=== PATIENT | female | born 1980 | race Caucasian/White ===

== ENCOUNTER 2020-06-23 21:34 | Inpatient (IN) | payer OTHER ==
[2020-06-23] MEDS ORDERED: SODIUM CHLORIDE 0.9% 500 ML INFUS.BAG IV ONE ×2 (21:44→22:57)
[2020-06-23] MEDS ORDERED: ACETAMINOPHEN 1000 MG/100 ML VIAL (NON FORMULARY) IVPB ONE (21:55)
--- NOTE | 2020-06-23 21:56 | PDOC ---
History of Present Illness - General Chief Complaint: Blood Sugar Problem Stated Complaint: BLOOD SUGAR ELEVATED Time Seen by Provider: 06/23/20 21:43 History Source: Patient Exam Limitations: No Limitations - History of Present Illness Initial Comments: 06/23/20 21:51 39YOF with h/o recent uncomplicated vaginal delivery of her first child, was c/b gestational DM (was on 10 units SQI for the last 3 weeks of her which was otherwise uncomplicated) who p/w tiredness, blurry vision, lightheadedness, and headache for the past 2-3 days. She came in because she checked her BG at home this evening and found it to be 595. She first drank a lot of water but the BG was still at 500, so she came to the ED. She has tried taking Motrin for the headache with some relief, but it is still present. She notes some mild nausea. She denies vertigo, numbness, tingling, focal weakness, speech problems, swallowing issues, walking difficulties, f/c, d/c, CP, AP, SOB, or other symptoms. Past History - Medical History Allergies/Adverse Reactions: Allergies Allergy/AdvReac Type Severity Reaction Status Date / Time Penicillins Allergy Verified 06/23/20 21:47 shellfish derived Allergy Verified 06/23/20 21:47 Home Medications: Ambulatory Orders Fexofenadine HCl [Loraine Allergy] 60 mg PO DAILY 06/23/20 Pnv No.95/Ferrous Fum/Folic AC [ Caplet] 1 each PO DAILY 06/23/20 Anemia: (ENVIRONMENTAL ALLERGIES) COPD: No Diabetes: (GESTATIONAL) Other medical history: POST CILDBIRTH X2 WEEKS - Surgical History Appendectomy: Yes - Reproductive History Is Patient Now?: No - Immunization History Immunization Up to Date: Yes - Psycho-Social/Smoking History Smoking History: Never smoked Review of Systems - Review of Systems Able to Perform ROS?: Yes Comments:: 06/23/20 21:55 GEN: malaise, generalized weakness, no fever or chills HEENT: no ear pain, congestion, sore throat, vision change, or eye pain CV: lightheadedness, no chest pain, palpitations, syncope, or edema RESP: no SOB, wheezing, or cough GI: nausea, no abdominal pain, vomiting, diarrhea, constipation, or rectal bleed : no dysuria, hematuria, or discharge MSK: no muscle weakness or pain, no joint swelling or pain NEURO: headache, no vertigo, numbness, tingling, or focal weakness PSYCH: no SI, HI, or behavior change SKIN: no jaundice, rash, lesions, or unexplained bruises ROS otherwise negative except as noted in HPI *Physical Exam - Vital Signs Last Vital Signs Temp Pulse Resp BP Pulse Ox 97.9 F 73 18 119/88 100 06/23/20 21:35 06/23/20 21:35 06/23/20 21:35 06/23/20 21:35 06/23/20 21:35 - Physical Exam 06/23/20 21:56 GENERAL: generally well-appearing, A/Ox4, no distress, answers questions appropriately, very pleasant HEENT: PERRLA, EOMI, a bit dry mucous membranes NECK/BACK: no midline ttp, no spinal step-off or deformity, no hematoma, full ROM, neck supple CARDIOVASCULAR: regular rate/rhythm, no MGR, strong peripheral pulses, capillary refill <2 seconds, extremities wwp, no edema LUNGS/RESPIRATORY: no respiratory distress, CTAB GI/ABDOMEN: symmetric [id number], normoactive BS, soft, no ttp, no midline pulsatile masses : no CVA tenderness MSK/EXTREMITIES: no muscle atrophy, no acute deformity SKIN: warm and dry, a bit pale, no jaundice, no rash, no pathologic-appearing bruising, no skin breakdown, no cuts, no lesions NEUROLOGICAL: GCS 15, CN II-XII grossly intact, 5/5 strength proximally and distally, no facial droop Heart Score/ECG Review #1 06/23/20 23:28 Sinus rhythm, rate 70, normal axis and intervals, no ischemic ST-T changes. There is NO grossly prolonged QTc. ED Treatment Course - LABORATORY CBC & Chemistry Diagram: 06/23/20 22:09 06/23/20 22:12 - ADDITIONAL ORDERS Additional order review: Laboratory Results 06/23/20 21:46 POC Glucometer 460 06/23/20 21:46 POC Glucometer 460 Medical Decision Making - Medical Decision Making 06/23/20 22:07 39YOF who recently had vaginal delivery of her first baby with complicated by GDM, who p/w tiredness, blurry vision, lightheadedness, and BG up to 595 at home. Initial Vital Signs Temp Pulse Resp BP Pulse Ox 97.9 F 73 18 119/88 100 06/23/20 21:35 06/23/20 21:35 06/23/20 21:35 06/23/20 21:35 06/23/20 21:35 Most likely HHS or DKA. Possible simple hyperglycemia leading to polyuria and dehydration. The patient does have new onset blurry vision and posterior headache, which of course does raise the question of CVT or SAH. However there was no sudden onset to the headache, she has subjective blurred vision but on my exam she has 20/20 vision in each eye and both together with her lenses on, she has no ataxia, no focal neuro deficits, normal cerebellar signs, no encephalopathy, states she has had similar headaches before. Therefore will not pursue brain imaging at this time. Provider Orders Category Date Time Status VENOUS BLOOD GAS Stat ABG 06/23/20 22:12 Completed ELECTROCARDIOGRAM [CARD] Stat Cardiology 06/23/20 21:44 Ordered EKG needed NOW Care 06/23/20 21:44 Completed Finger Stick [BGM (Blood Glucose Monitoring)] NOW Care 06/23/20 21:50 Active BETA-HYDROXYBUTYRATE Stat Lab 06/23/20 22:12 Results CBC WITH DIFFERENTIAL Stat Lab 06/23/20 22:09 Completed COMP METABOLIC PANEL Stat Lab 06/23/20 22:12 Results MAGNESIUM Stat Lab 06/23/20 22:12 Results PHOSPHOROUS Stat Lab 06/23/20 22:12 Results POC GLUCOSE TESTING Routine Lab 06/23/20 21:46 Completed UA ([facility] ONLY) Stat Lab 06/23/20 22:07 Completed URINE MICROSCOPIC (TEMI) Stat Lab 06/23/20 22:07 Completed Acetaminophen Injection [Ofirmev Injection -] Medication 06/23/20 21:55 Discontinued 1,000 mg IVPB ONCE ONE Acetaminophen Injection [Ofirmev Injection -] 100 ml Medication 06/23/20 22:04 Discontinued IVPB UD Insulin Regular [NOVOLIN R VIAL *For IVPUSH or IV DRIP Medication 06/23/20 22:57 Stop Req Only*] 10 units SQ ONCE ONE Insulin Regular [NOVOLIN R VIAL *For IVPUSH or IV DRIP Medication 06/23/20 23:20 Once Only*] 19 units SQ ONCE ONE KCl 10 Meq Ivpb [Potassium Chloride 10 Meq Premix Ivpb Medication 06/23/20 22:59 Discontinued -] 10 meq in 100 ml IVPB UD KCl 10meq IVPB @ 100 mLs/hr X 1 BAG Medication 06/23/20 23:00 Ordered KCl 10 Meq Ivpb [Potassium Chloride 10 Meq Premix Ivpb -] 10 meq in 100 ml IVPB Q60M Sodium Chloride [Normal Saline -] Medication 06/23/20 21:44 Discontinued 1,000 ml IV ONCE ONE Sodium Chloride [Normal Saline -] Medication 06/23/20 22:57 Once 1,000 ml IV ONCE ONE URINE CULTURE Stat Micro 06/23/20 22:12 Received IV Insert NOW Phy Order 06/23/20 21:44 Completed Saline Lock, Insert ONCE Phy Order 06/23/20 21:45 Ordered Medications Generic Name Dose Route Start Last Admin Trade Name Freq PRN Reason Stop Dose Admin Potassium Chloride 10 meq in 100 mls @ 100 mls/hr 06/23/20 23:00 06/23/20 23:04 Potassium Chloride 10 Meq Premix Ivpb - IVPB 06/23/20 23:59 100 mls/hr Q60M MAGY Administration Discontinued Medications Generic Name Dose Route Start Last Admin Trade Name Freq PRN Reason Stop Dose Admin Acetaminophen 1,000 mg 06/23/20 21:55 06/23/20 22:06 Ofirmev Injection - IVPB 06/23/20 21:56 1,000 mg ONCE ONE Administration Acetaminophen Confirm 06/23/20 22:04 Ofirmev Injection - Administered 06/23/20 22:05 Dose 100 mls @ ud IVPB .STK-MED ONE Potassium Chloride Confirm 06/23/20 22:59 Potassium Chloride 10 Meq Premix Ivpb - Administered 06/23/20 23:00 Dose 10 meq in 100 mls @ ud IVPB .STK-MED ONE Insulin Human Regular 10 units 06/23/20 22:57 Novolin R Vial *For Ivpush Or Iv Drip Only* SQ 06/23/20 22:58 ONCE ONE Sodium Chloride 1,000 ml 06/23/20 21:44 06/23/20 22:04 Normal Saline - IV 06/23/20 21:45 1,000 ml ONCE ONE Administration Sodium Chloride 1,000 ml 06/23/20 22:57 06/23/20 22:58 Normal Saline - IV 06/23/20 22:58 1,000 ml ONCE ONE Administration Lab Results WBC 6.1 K/mm3 (4.0-10.8) 06/23/20 22:09 RBC 4.76 M/mm3 (3.60-5.2) 06/23/20 22:09 Hgb 15.3 GM/dl (10.7-15.3) 06/23/20 22:09 Hct 46.8 % (32.4-45.2) H 06/23/20 22:09 MCV 98.5 fl (80-96) H 06/23/20 22:09 MCH 32.3 pg (25.7-33.7) 06/23/20 22:09 MCHC 32.8 g/dl (32.0-36.0) 06/23/20 22:09 RDW 12.0 % (11.6-15.6) 06/23/20 22:09 Plt Count 287 K/MM3 (134-434) 06/23/20 22:09 MPV 8.4 fl (7.5-11.1) 06/23/20 22:09 Absolute Neuts (auto) 3.3 K/mm3 06/23/20 22:09 Neutrophils % 54.9 % (42.8-82.8) 06/23/20 22:09 Lymphocytes % 39.3 % (8-40) 06/23/20 22:09 Monocytes % 3.3 % (3.8-10.2) L 06/23/20 22:09 Eosinophils % 1.2 % (0-4.5) 06/23/20 22:09 Basophils % 1.3 % (0-2.0) 06/23/20 22:09 VBG pH 7.240 (7.310-7.410) L 06/23/20 22:12 POC VBG pCO2 36.9 mmHg (38-52) L 06/23/20 22:12 POC VBG pO2 28.2 mmHg (28-48) 06/23/20 22:12 VBG HCO3 15.5 mmol/L (23-29) L 06/23/20 22:12 VBG O2 Sat (Ric) 43.8 % (70-80) L 06/23/20 22:12 VBG Base Excess -11.0 mmol/L (-2-2) L 06/23/20 22:12 Sodium 130 mmol/L (136-145) L 06/23/20 22:12 Potassium 4.1 mmol/L (3.5-5.1) 06/23/20 22:12 Chloride 96 mmol/L (98-107) L 06/23/20 22:12 Carbon Dioxide 16 mmol/L (21-32) L 06/23/20 22:12 Anion Gap 18 MMOL/L (8-16) H 06/23/20 22:12 BUN 13.0 mg/dl (7-18) 06/23/20 22:12 Creatinine 0.9 mg/dl (0.55-1.3) 06/23/20 22:12 Est GFR (CKD-EPI)AfAm 94.67 06/23/20 22:12 Est GFR (CKD-EPI)NonAf 81.68 06/23/20 22:12 POC Glucometer 460 UNITS (80-120) 06/23/20 21:46 Random Glucose 491 mg/dl (74-106) H* 06/23/20 22:12 Calcium 8.6 mg/dl (8.5-10) 06/23/20 22:12 Phosphorus 3.3 mg/dl (2.5-4.9) 06/23/20 22:12 Magnesium 1.9 mg/dL (1.8-2.4) 06/23/20 22:12 Total Bilirubin 1.1 mg/dl (0.2-1) H 06/23/20 22:12 AST 18 U/L (15-37) 06/23/20 22:12 ALT 34 U/L (13-61) 06/23/20 22:12 Alkaline Phosphatase 160 U/L (45-117) H 06/23/20 22:12 Total Protein 6.7 g/dl (6.4-8.2) 06/23/20 22:12 Albumin 3.8 g/dl (3.4-5.0) 06/23/20 22:12 Urine Color Yellow 06/23/20 22:07 Urine Appearance Clear 06/23/20 22:07 Urine pH 5.0 (4.5-8) 06/23/20 22:07 Urine Protein Negative (NEGATIVE) 06/23/20 22:07 Urine Glucose (UA) Negative (NEGATIVE) 06/23/20 22:07 Urine Ketones 4+ (NEGATIVE) H 06/23/20 22:07 Urine Blood 2+ (NEGATIVE) H 06/23/20 22:07 Urine Nitrite Negative (NEGATIVE) 06/23/20 22:07 Urine Bilirubin Negative (NEGATIVE) 06/23/20 22:07 Urine Urobilinogen 0.2 (0.2-1.0) 06/23/20 22:07 Ur Leukocyte Esterase Negative (NEGATIVE) 06/23/20 22:07 Urine RBC 10-20 /hpf (0-4) 06/23/20 22:07 Urine WBC 0-2 (NEGATIVE) 06/23/20 22:07 Ur Transition Epith Cell Few /hpf 06/23/20 22:07 Urine Bacteria Rare /hpf (NEGATIVE) 06/23/20 22:07 Patient in DKA. Very well appearing, wants to stay at [facility], good candidate for SQI therapy as opposed to ggt at this time. She has gotten 1 KCl rider (serum potassium initially was 4.1). Will give 0.3 U/kg SQ regular insulin now, and follow SQ protocol with another 0.2 U/kg SQ after one hour, then will do 0.2 U/kg SQ every two hours after that until anion gap closes. She will also need BMP rechecked with VBG at about 1am to follow potassium and ensure it stays within the range of 4-5. The patient will stay here at [facility]. Admission procedures to be carried out, patient going to [facility]. She would likely benefit from endo consult this admission. I will continue to follow her case per ipherally throughout the night. Discharge - Discharge Information Problems reviewed: Yes Clinical Impression/Diagnosis: DKA (diabetic ketoacidoses) Qualifiers: Diabetes mellitus type: other specified (including CARLOS EDUARDO) Diabetes mellitus complication detail: without coma Qualified Code(s): E13.10 - Other specified diabetes mellitus with ketoacidosis without coma Condition: Guarded - Admission Yes - Follow up/Referral Referrals: FriendRohan [Primary Care Provider] - - Patient Discharge Instructions - Post Discharge Activity
[2020-06-23] MEDS ORDERED: ACETAMINOPHEN INJECTION 100 ML IVPB ONE (22:04)
[2020-06-23 22:17] LABS: BASO % 1.3 % (0-2.0); EOS % 1.2 % (0-4.5); HEMATOCRIT 46.8 % (32.4-45.2); HEMOGLOBIN 15.3 GM/dl (10.7-15.3); LYMPH % 39.3 % (8-40); MCH 32.3 pg (25.7-33.7); MCHC 32.8 g/dl (32.0-36.0); MEAN CELL VOLUME 98.5 fl (80-96); MEAN PLT VOLUME 8.4 fl (7.5-11.1); MONO % 3.3 % (3.8-10.2); NEUT % 54.9 % (42.8-82.8); PLATELET COUNT 287 K/MM3 (134-434); RBC 4.76 M/mm3 (3.60-5.2); WHITE BLOOD COUNT 6.1 K/mm3 (4.0-10.8)
[2020-06-23 22:24] LABS: EPITHELIAL CELLS FEW /hpf
[2020-06-23 22:37] LABS: ALBUMIN 3.8 g/dl (3.4-5.0); BILIRUBIN,TOTAL 1.1 mg/dl (0.2-1); CALCIUM 8.6 mg/dl (8.5-10); CREATININE 0.9 mg/dl (0.55-1.3); MAGNESIUM 1.9 mg/dL (1.8-2.4); PHOSPHOROUS 3.3 mg/dl (2.5-4.9); POTASSIUM 4.1 mmol/L (3.5-5.1); TOT PROT 6.7 g/dl (6.4-8.2)
[2020-06-23 22:51] LABS: VENOUS O2 SATURATION 43.8 % (70-80); VENOUS PCO2 36.9 mmHg (38-52); VENOUS PH 7.24 (7.310-7.410)
[2020-06-23] MEDS ORDERED: INSULIN REGULAR HUMAN 100 UNITS/ML *VIAL SQ ONE ×2 (22:57→23:20)
[2020-06-23] MEDS ORDERED: KCL 10 MEQ IVPB 10 MEQ/100 ML INFUS.BAG IVPB ONE (22:59)
[2020-06-23] MEDS ORDERED: KCL 10 MEQ IVPB 10 MEQ/100 ML INFUS.BAG IVPB SCH (23:00)
[2020-06-23] MEDS ORDERED: INSULIN REGULAR HUMAN 100 UNITS/ML *VIAL ONE (23:25)
[2020-06-24] MEDS ORDERED: INSULIN REGULAR HUMAN 100 UNITS/ML *VIAL SQ ONE ×2 (00:49→02:50)
[2020-06-24] MEDS ORDERED: LACTATED RINGERS SOLUTION 1,000 ML/1,000 ML INFUS.BAG IV STA (00:50)
[2020-06-24] MEDS ORDERED: KCL 10 MEQ IVPB 10 MEQ/100 ML INFUS.BAG IVPB ONE ×2 (00:56→02:05)
[2020-06-24] MEDS ORDERED: INSULIN REGULAR HUMAN 100 UNITS/ML *VIAL ONE ×2 (00:56→03:03)
[2020-06-24] MEDS: KCL 10 MEQ IVPB 10 MEQ/100 ML INFUS.BAG IVPB SCH ×4 (01:03→07:03)
[2020-06-24] MEDS ORDERED: SODIUM CHLORIDE 1,000 ML IV SCH (01:15)
[2020-06-24 01:54] LABS: VENOUS BASE EXCESS -12.9 mmol/L (-2-2); VENOUS O2 SATURATION 39.3 % (70-80); VENOUS PCO2 38.4 mmHg (38-52)
[2020-06-24 01:57] LABS: VENOUS PH 7.193 (7.310-7.410)
[2020-06-24 02:18] LABS: BLOOD UREA NITROGEN 10.1 mg/dL (7-18); CALCIUM 7.4 mg/dL (8.5-10.1); CREATININE 0.8 mg/dL (0.55-1.3); POTASSIUM 4.3 mmol/L (3.5-5.1)
[2020-06-24] MEDS ORDERED: DEXTROSE 5%-0.45% SALINE 1,000 ML IV SCH (03:00)
[2020-06-24 03:20] LABS: VENOUS BASE EXCESS -10.2 mmol/L (-2-2); VENOUS PCO2 34.4 mmHg (38-52); VENOUS PH 7.275 (7.310-7.410)
[2020-06-24 03:54] LABS: ALBUMIN 2.6 g/dl (3.4-5.0); BILIRUBIN,TOTAL 0.3 mg/dL (0.2-1); BLOOD UREA NITROGEN 7.8 mg/dL (7-18); CREATININE 0.6 mg/dL (0.55-1.3); POTASSIUM 3.2 mmol/L (3.5-5.1)
[2020-06-24 04:08] LABS: TOT PROT 5.1 g/dl (6.4-8.2)
[2020-06-24 04:09] LABS: CALCIUM 6.9 mg/dL (8.5-10.1)
[2020-06-24] MEDS ORDERED: CALCIUM GLUCONATE 10% - 1,000 MG/10 ML VIAL IVPB ONE (04:09)
[2020-06-24] MEDS ORDERED: CALCIUM GLUCONATE 10% - 1,000 MG/10 ML VIAL ONE (04:12)
[2020-06-24] MEDS ORDERED: D5-1/2NS+40 MEQ KCL - 40 MEQ/1,000 ML INFUS.BAG IV SCH (04:15)
[2020-06-24 05:16] VITALS: BMI 23.5
[2020-06-24] MEDS: INSULIN SLIDING SCALE (NOVOLOG) 1 VIAL SQ SCH ×4 (07:00→21:31)
[2020-06-24 08:17] LABS: BASO % 3.1 % (0-2.0); EOS % 0.9 % (0-4.5); HEMATOCRIT 39.2 % (32.4-45.2); HEMOGLOBIN 12.9 GM/dl (10.7-15.3); LYMPH % 17.4 % (8-40); MCH 31.5 pg (25.7-33.7); MCHC 32.9 g/dl (32.0-36.0); MEAN CELL VOLUME 95.8 fl (80-96); MEAN PLT VOLUME 8.9 fl (7.5-11.1); MONO % 3.1 % (3.8-10.2); NEUT % 75.5 % (42.8-82.8); PLATELET COUNT 243 K/MM3 (134-434); RBC 4.09 M/mm3 (3.60-5.2); WHITE BLOOD COUNT 8.7 K/mm3 (4.0-10.8)
--- NOTE | 2020-06-24 08:59 | HP ---
CHIEF COMPLAINT: elevated glucose, headache, blurry vision PCP: HISTORY OF PRESENT ILLNESS: 39YOF with h/o recent uncomplicated vaginal delivery of her first child, was c/b gestational DM (was on 10 units SQI for the last 3 weeks of her which was otherwise uncomplicated). pt reports she stopped taking her insulin few days before delivery as per Plastic Surgery Technician, after delivery past 2 weeks, had no complaints, last c/o tiredness, blurry vision, lightheadedness, and headache for the past 2-3 days. She came in because she checked her BG at home this evening and found it to be 595. She first drank a lot of water but the BG was still at 500, so she came to the ED. She has tried taking Motrin for the headache with some relief, but it is still present. She notes some mild nausea. She denies vertigo, numbness, tingling, focal weakness, speech problems, swallowing issues, walking difficulties, f/c, d/c, CP, AP, SOB, or other symptoms. In ED blood sugar 491, insulin given, anion gap 18, rechecked at 2am gap 9. pt seen at bedside this morning, headache, blurry vision resolved, eating breakfast. blood sugar 128 awaiting morning labs. Endocrine service called this morning. ER course was notable for: (1) anion gap 18-->9 (2) BS 491 (3) Recent Travel: PAST MEDICAL HISTORY: none PAST SURGICAL HISTORY:appendectomy Social History: Smoking:denies Alcohol: denies Drugs: denies Allergies Penicillins Allergy (Verified 06/23/20 21:47) shellfish derived Allergy (Verified 06/23/20 21:47) HOME MEDICATIONS: Home Medications Medication Instructions Recorded Fexofenadine HCl [Loraine Allergy] 60 mg PO DAILY 06/23/20 Pnv No.95/Ferrous Fum/Folic AC 1 each PO DAILY 06/23/20 [ Caplet] REVIEW OF SYSTEMS CONSTITUTIONAL: +generalized weakness, malaise Absent: fever, chills, diaphoresis, , loss of appetite, weight change HEENT: +blurry vision Absent: rhinorrhea, nasal congestion, throat pain, throat swelling, difficulty swallowing, mouth swelling, ear pain, eye pain, CARDIOVASCULAR: Absent: chest pain, syncope, palpitations, irregular heart rate, lighth eadedness, peripheral edema RESPIRATORY: Absent: cough, shortness of breath, dyspnea with exertion, orthopnea, wheezing, stridor, hemoptysis GASTROINTESTINAL: Absent: abdominal pain, abdominal distension, nausea, vomiting, diarrhea, constipation, melena, hematochezia GENITOURINARY: Absent: dysuria, frequency, urgency, hesitancy, hematuria, flank pain, genital pain MUSCULOSKELETAL: Absent: myalgia, arthralgia, joint swelling, back pain, neck pain SKIN: Absent: rash, itching, pallor HEMATOLOGIC/IMMUNOLOGIC: Absent: easy bleeding, easy bruising, lymphadenopathy, frequent infections ENDOCRINE: Absent: unexplained weight gain, unexplained weight loss, heat intolerance, cold intolerance NEUROLOGIC: headache, Absent: focal weakness or paresthesias, dizziness, unsteady gait, seizure, mental status changes, bladder or bowel incontinence PSYCHIATRIC: Absent: anxiety, depression, suicidal or homicidal ideation, hallucinations. PHYSICAL EXAMINATION Vital Signs - 24 hr 06/23/20 06/24/20 06/24/20 21:35 00:00 02:54 Temperature 97.9 F Pulse Rate 73 Pulse Rate [ 73 67 Radial] Respiratory 18 16 14 Rate Blood Pressure 119/88 Blood Pressure 113/74 [Arm] O2 Sat by Pulse 100 99 98 Oximetry (%) 06/24/20 05:05 Temperature 98.5 F Pulse Rate 82 Pulse Rate [ Radial] Respiratory 17 Rate Blood Pressure 96/64 Blood Pressure [Arm] O2 Sat by Pulse 94 L Oximetry (%) GENERAL: Awake, alert, and fully oriented, in no acute distress. HEAD: Normal with no signs of trauma. EYES: Pupils equal, round and reactive to light, extraocular movements intact, sclera anicteric, conjunctiva clear. No lid lag. EARS, NOSE, THROAT: Ears normal, nares patent, oropharynx clear without exudates. Moist mucous membranes. NECK: Normal range of motion, supple without lymphadenopathy, JVD, or masses. LUNGS: Breath sounds equal, clear to auscultation bilaterally. No wheezes, and no crackles. No accessory muscle use. HEART: Regular rate and rhythm, normal S1 and S2 without murmur, rub or gallop. ABDOMEN: Soft, nontender, not distended, normoactive bowel sounds, no guarding, no rebound, no masses. No hepatomegaly or splenomegaly. MUSCULOSKELETAL: Normal range of motion at all joints. No bony deformities or tenderness. No CVA tenderness. UPPER EXTREMITIES: 2+ pulses, warm, well-perfused. No cyanosis. No clubbing. No peripheral edema. LOWER EXTREMITIES: 2+ pulses, warm, well-perfused. No calf tenderness. No peripheral edema. NEUROLOGICAL: Cranial nerves II-XII intact. Normal speech. Normal gait. PSYCHIATRIC: Cooperative. Good eye contact. Appropriate mood and affect. SKIN: Warm, dry, normal turgor, no rashes or lesions noted, normal capillary refill. Laboratory Results - last 24 hr 06/23/20 06/23/20 06/23/20 21:46 22:07 22:09 WBC 6.1 RBC 4.76 Hgb 15.3 Hct 46.8 H MCV 98.5 H MCH 32.3 MCHC 32.8 RDW 12.0 Plt Count 287 MPV 8.4 Absolute Neuts (auto) 3.3 Neutrophils % 54.9 Lymphocytes % 39.3 Monocytes % 3.3 L Eosinophils % 1.2 Basophils % 1.3 VBG pH POC VBG pCO2 POC VBG pO2 VBG HCO3 VBG O2 Sat (Ric) VBG Base Excess Sodium Potassium Chloride Carbon Dioxide Anion Gap BUN Creatinine Est GFR (CKD-EPI)AfAm Est GFR (CKD-EPI)NonAf POC Glucometer 460 Random Glucose Calcium Phosphorus Magnesium Total Bilirubin AST ALT Alkaline Phosphatase Total Protein Albumin Beta-Hydroxybutyrate Urine Color Yellow Urine Appearance Clear Urine pH 5.0 Urine Protein Negative Urine Glucose (UA) Negative Urine Ketones 4+ H Urine Blood 2+ H Urine Nitrite Negative Urine Bilirubin Negative Urine Urobilinogen 0.2 Ur Leukocyte Esterase Negative Urine RBC 10-20 Urine WBC 0-2 Ur Transition Epith Cell Few Urine Bacteria Rare 06/23/20 06/23/20 06/24/20 22:12 22:12 00:20 WBC RBC Hgb Hct MCV MCH MCHC RDW Plt Count MPV Absolute Neuts (auto) Neutrophils % Lymphocytes % Monocytes % Eosinophils % Basophils % VBG pH 7.240 L 7.193 L* POC VBG pCO2 36.9 L 38.4 POC VBG pO2 28.2 27.4 L VBG HCO3 15.5 L 14.4 L VBG O2 Sat (Ric) 43.8 L 39.3 L VBG Base Excess -11.0 L -12.9 L Sodium 130 L Potassium 4.1 Chloride 96 L Carbon Dioxide 16 L Anion Gap 18 H BUN 13.0 Creatinine 0.9 Est GFR (CKD-EPI)AfAm 94.67 Est GFR (CKD-EPI)NonAf 81.68 POC Glucometer Random Glucose 491 H* Calcium 8.6 Phosphorus 3.3 Magnesium 1.9 Total Bilirubin 1.1 H AST 18 ALT 34 Alkaline Phosphatase 160 H Total Protein 6.7 Albumin 3.8 Beta-Hydroxybutyrate 48.6 H Urine Color Urine Appearance Urine pH Urine Protein Urine Glucose (UA) Urine Ketones Urine Blood Urine Nitrite Urine Bilirubin Urine Urobilinogen Ur Leukocyte Esterase Urine RBC Urine WBC Ur Transition Epith Cell Urine Bacteria 06/24/20 06/24/20 06/24/20 00:47 00:54 02:20 WBC RBC Hgb Hct MCV MCH MCHC RDW Plt Count MPV Absolute Neuts (auto) Neutrophils % Lymphocytes % Monocytes % Eosinophils % Basophils % VBG pH POC VBG pCO2 POC VBG pO2 VBG HCO3 VBG O2 Sat (Ric) VBG Base Excess Sodium 138 Potassium 4.3 Chloride 106 Carbon Dioxide 16 L Anion Gap 16 BUN 10.1 Creatinine 0.8 Est GFR (CKD-EPI)AfAm 109.16 Est GFR (CKD-EPI)NonAf 94.18 POC Glucometer 337 258 Random Glucose 375 H Calcium 7.4 L Phosphorus Magnesium Total Bilirubin AST ALT Alkaline Phosphatase Total Protein Albumin Beta-Hydroxybutyrate Urine Color Urine Appearance Urine pH Urine Protein Urine Glucose (UA) Urine Ketones Urine Blood Urine Nitrite Urine Bilirubin Urine Urobilinogen Ur Leukocyte Esterase Urine RBC Urine WBC Ur Transition Epith Cell Urine Bacteria 06/24/20 06/24/20 06/24/20 02:50 02:50 02:53 WBC RBC Hgb Hct MCV MCH MCHC RDW Plt Count MPV Absolute Neuts (auto) Neutrophils % Lymphocytes % Monocytes % Eosinophils % Basophils % VBG pH 7.275 L POC VBG pCO2 34.4 L POC VBG pO2 42.2 VBG HCO3 15.6 L VBG O2 Sat (Ric) 72.0 VBG Base Excess -10.2 L Sodium 140 Potassium 3.2 L Chloride 112 H Carbon Dioxide 18 L Anion Gap 9 BUN 7.8 Creatinine 0.6 Est GFR (CKD-EPI)AfAm 134.96 Est GFR (CKD-EPI)NonAf 116.44 POC Glucometer 231 Random Glucose 237 H Calcium 6.9 L* Phosphorus Magnesium Total Bilirubin 0.3 AST 12 L ALT 29 Alkaline Phosphatase 135 H Total Protein 5.1 L Albumin 2.6 L Beta-Hydroxybutyrate Urine Color Urine Appearance Urine pH Urine Protein Urine Glucose (UA) Urine Ketones Urine Blood Urine Nitrite Urine Bilirubin Urine Urobilinogen Ur Leukocyte Esterase Urine RBC Urine WBC Ur Transition Epith Cell Urine Bacteria 06/24/20 06/24/20 05:45 08:04 WBC 8.7 RBC 4.09 Hgb 12.9 Hct 39.2 D MCV 95.8 MCH 31.5 MCHC 32.9 RDW 12.0 Plt Count 243 MPV 8.9 Absolute Neuts (auto) 6.5 Neutrophils % 75.5 Lymphocytes % 17.4 Monocytes % 3.1 L Eosinophils % 0.9 Basophils % 3.1 H VBG pH POC VBG pCO2 POC VBG pO2 VBG HCO3 VBG O2 Sat (Ric) VBG Base Excess Sodium Potassium Chloride Carbon Dioxide Anion Gap BUN Creatinine Est GFR (CKD-EPI)AfAm Est GFR (CKD-EPI)NonAf POC Glucometer 128 Random Glucose Calcium Phosphorus Magnesium Total Bilirubin AST ALT Alkaline Phosphatase Total Protein Albumin Beta-Hydroxybutyrate Urine Color Urine Appearance Urine pH Urine Protein Urine Glucose (UA) Urine Ketones Urine Blood Urine Nitrite Urine Bilirubin Urine Urobilinogen Ur Leukocyte Esterase Urine RBC Urine WBC Ur Transition Epith Cell Urine Bacteria ASSESSMENT/PLAN: Peggy Mccracken is a 39 yr old F, s/p vaginal delivery 3 weeks ago, uncomplicated, gestational DM during last 3 weeks of . admitted for Admitting Diagnosis DKA #DKA-resolved -tele monitoring -VBG improved -monitor FS -ISC -IVF D5 w/K+ supplement -Endocrine consult -Diabetic diet -anion gap closed #Hypocalcemia -Ca+ 6.9 -received ca gluconate in AM -awaiting for repeat labs Full Code FEN: IVF, monitor electrolytes, diabetic diet Family Medical History Family History: As Documented Visit type - Emergency Visit Emergency Visit: Yes ED Registration Date: 06/24/20 Care time: The patient presented to the Emergency Department on the above date and was hospitalized for further evaluation of their emergent condition. - New Patient This patient is new to me today: Yes Date on this admission: 06/24/20 - Critical Care Critical Care patient: No
[2020-06-24] MEDS: HEPARIN NA (PORCINE) 5,000 UNITS/ML 1ML VIAL SQ SCH ×2 (09:29→21:34)
[2020-06-24 10:21] LABS: ALBUMIN 2.8 g/dl (3.4-5.0); BILIRUBIN,TOTAL 0.5 mg/dl (0.2-1); CALCIUM 7.6 mg/dl (8.5-10); CREATININE 0.5 mg/dl (0.55-1.3); MAGNESIUM 1.6 mg/dL (1.8-2.4); POTASSIUM 3.2 mmol/L (3.5-5.1); TOT PROT 4.9 g/dl (6.4-8.2)
[2020-06-24] MEDS ORDERED: MAGNESIUM SULF 50% (8.12 MEQ/2 ML-1 GM VIAL) IVPB ONE (10:44)
[2020-06-24] MEDS ORDERED: POTASSIUM CHLORIDE TABS 20 MEQ TABLET.ER (FP) PO ONE (10:44)
[2020-06-24] MEDS ORDERED: MAGNESIUM 1GM/D5W - 1 GM/100 ML IVPB IVPB ONE (11:00)
[2020-06-24] MEDS: PRENATAL VITAMINS W/ FOLIC ACID TABLET (FP) PO SCH (11:17)
--- NOTE | 2020-06-24 11:50 | EKG ---
Test Reason : Blood Pressure : / mmHG Vent. Rate : 070 BPM Atrial Rate : 070 BPM P-R Int : 128 ms QRS Dur : 084 ms QT Int : 456 ms P-R-T Axes : 058 018 041 degrees QTc Int : 492 ms NORMAL SINUS RHYTHM PROLONGED QT ABNORMAL ECG NO PREVIOUS ECGS AVAILABLE Confirmed by NAEEM HANDLEY MD ([id number]) on 06/24/2020 11:50:12 AM Referred By: LUZ ELENA BALLARD Confirmed By:NAEEM HANDLYE MD
[2020-06-24] MEDS: CALCIUM CARBONATE 650 MG TABLET PO SCH (12:40)
[2020-06-24] MEDS: SODIUM CHLORIDE 0.9%/KCL 20 MEQ/1,000 ML INFUS.BAG IV SCH (16:01)
[2020-06-25 08:35] LABS: BASO % 0.6 % (0-2.0); EOS % 2.9 % (0-4.5); HEMATOCRIT 39.4 % (32.4-45.2); HEMOGLOBIN 12.8 GM/dl (10.7-15.3); LYMPH % 48.1 % (8-40); MCH 31.5 pg (25.7-33.7); MCHC 32.5 g/dl (32.0-36.0); MEAN CELL VOLUME 97.1 fl (80-96); MEAN PLT VOLUME 9.1 fl (7.5-11.1); MONO % 3.1 % (3.8-10.2); NEUT % 45.3 % (42.8-82.8); PLATELET COUNT 200 K/MM3 (134-434); RBC 4.05 M/mm3 (3.60-5.2); RDW 12.1 % (11.6-15.6); WHITE BLOOD COUNT 4.5 K/mm3 (4.0-10.8)
[2020-06-25 08:47] LABS: ALBUMIN 2.7 g/dl (3.4-5.0); BILIRUBIN,TOTAL 0.7 mg/dl (0.2-1); CALCIUM 7.7 mg/dl (8.5-10); CREATININE 0.5 mg/dl (0.55-1.3); MAGNESIUM 1.8 mg/dL (1.8-2.4); POTASSIUM 4.2 mmol/L (3.5-5.1)
[2020-06-25] MEDS ORDERED: PT OWN MED DRAWER 7, Y5N ONE ×2 (08:58→10:03)
[2020-06-25] MEDS: INSULIN SLIDING SCALE (NOVOLOG) 1 VIAL SQ SCH ×3 (09:00→16:30)
[2020-06-25] MEDS: HEPARIN NA (PORCINE) 5,000 UNITS/ML 1ML VIAL SQ SCH ×2 (10:02→21:16)
[2020-06-25] MEDS: CALCIUM CARBONATE 650 MG TABLET PO SCH (10:03)
[2020-06-25] MEDS: PRENATAL VITAMINS W/ FOLIC ACID TABLET (FP) PO SCH (10:03)
--- NOTE | 2020-06-25 10:43 | CONSULT ---
Consult Consult Specialty:: Endocrinology Referred by:: Manisha Garza Reason for Consultation:: Hyperglycemia - History of Present Illness Chief Complaint: Nausea History of Present Illness: This is a 39 Y/O F with h/o GDM on Insulin during the last 3 weeks of , uncomplicated vaginal delivery of her first child 2 weeks ago presented to ED with complaints of c/o tiredness, blurry vision, lightheadedness, and headache for the past 2-3 days. She came in because she checked her BG at home this evening and found it to be 595. Her blood sugars were in the low 100s after delivery of the baby. Pt found to have blood sugar 491 in the ED and was treated with insulin. Anion gap fropped from 18, to 9. PH was 7.24 and Betahydro xybutyric acid found to be 48.6. Pt currently in bed in [facility], eager to go home as her child is alone with her . - History Source History Provided By: Patient, Medical Record - Past Medical History ...LMP: 06/23/20 ...LMP Comment: GAVE 2 WEEKS AGO ...: No - Smoking History Smoking history: Never smoked Home Medications - Allergies Allergies/Adverse Reactions: Allergies Allergy/AdvReac Type Severity Reaction Status Date / Time Penicillins Allergy Verified 06/23/20 21:47 shellfish derived Allergy Verified 06/23/20 21:47 - Home Medications Home Medications: Ambulatory Orders Fexofenadine HCl [Loraine Allergy] 60 mg PO DAILY 06/23/20 Pnv No.95/Ferrous Fum/Folic AC [ Caplet] 1 each PO DAILY 06/23/20 Family Medical History Other Family History: No family h/o DM Review of Systems - Review of Systems Constitutional: reports: No Symptoms Eyes: reports: No Symptoms HENT: reports: No Symptoms Neck: reports: No Symptoms Cardiovascular: reports: No Symptoms Respiratory: reports: No Symptoms Gastrointestinal: reports: No Symptoms Genitourinary: reports: No Symptoms Neurological: reports: No Symptoms Endocrine: reports: No Symptoms Physical Exam Vital Signs: Vital Signs Temperature 98.8 F 06/25/20 06:00 Pulse Rate 65 06/25/20 06:00 Respiratory Rate 18 06/25/20 07:27 Blood Pressure 127/70 06/25/20 06:00 O2 Sat by Pulse Oximetry (%) 98 06/25/20 07:27 Constitutional: Yes: No Distress, Calm Eyes: Yes: Conjunctiva Clear, EOM Intact HENT: Yes: Atraumatic, Normocephalic Neck: Yes: Supple, Trachea Midline Cardiovascular: Yes: Regular Rate and Rhythm Respiratory: Yes: Regular, CTA Bilaterally Gastrointestinal: Yes: Normal Bowel Sounds, Soft Musculoskeletal: Yes: WNL Extremities: Yes: WNL Edema: No Neurological: Yes: Alert, Oriented Labs: CBC, BMP 06/25/20 07:21 06/25/20 07:21 Assessment/Plan AP: DM/DKA Unclear why pt with GDM developed DKA. No signs of infection Pt seems very sensitive to Insulin as she dropped to 50 with Novlog 6 units at night Diet exercise discussed Diabetes education done All questions answered Will start Levemir 6 units daily at HS Novolog SS coverage Nutrition consult Will need to get C peptide and DORIS and Insulin antibodies. May need to do these outpatient if not able to do it now.
--- NOTE | 2020-06-25 12:15 | PN ---
Physical Exam: SUBJECTIVE: Patient seen and examined. Anxious, tearful. No pain, fevers, nausea, or any other symptoms. OBJECTIVE: Vital Signs Period Temp Pulse Resp BP Sys/Sarkar Pulse Ox Last 24 Hr 97.7 F-99.0 F 58-93 18-18 104-127/53-75 97-100 GENERAL: The patient is awake, alert, and fully oriented. HEAD: Normal with no signs of trauma. EYES: PERRL, extraocular movements intact, sclera anicteric, conjunctiva clear. No ptosis. ENT: Ears normal, nares patent, oropharynx clear without exudates, moist mucous membranes. NECK: Trachea midline, full range of motion, supple. LUNGS: Breath sounds equal, clear to auscultation bilaterally, no wheezes, no crackles, no accessory muscle use. HEART: Regular rate and rhythm, S1, S2 without murmur, rub or gallop. ABDOMEN: Soft, nontender, nondistended, normoactive bowel sounds, no guarding, no rebound, no hepatosplenomegaly, no masses. EXTREMITIES: 2+ pulses, warm, well-perfused, no edema. NEUROLOGICAL: Cranial nerves II through XII grossly intact. Normal speech, gait not observed. PSYCH: Sad, wants to get home to . SKIN: Warm, dry, normal turgor, no rashes or lesions noted Laboratory Results - last 24 hr 06/24/20 06/24/20 06/24/20 00:54 15:50 18:37 WBC RBC Hgb Hct MCV MCH MCHC RDW Plt Count MPV Absolute Neuts (auto) Neutrophils % Lymphocytes % Monocytes % Eosinophils % Basophils % Sodium Potassium Chloride Carbon Dioxide Anion Gap BUN Creatinine Est GFR (CKD-EPI)AfAm Est GFR (CKD-EPI)NonAf POC Glucometer 282 317 Random Glucose Calcium Magnesium Total Bilirubin AST ALT Alkaline Phosphatase Total Protein Albumin COVID-19 (ESPINOZA) Not detected 06/24/20 06/24/20 06/25/20 21:03 23:54 01:48 WBC RBC Hgb Hct MCV MCH MCHC RDW Plt Count MPV Absolute Neuts (auto) Neutrophils % Lymphocytes % Monocytes % Eosinophils % Basophils % Sodium Potassium Chloride Carbon Dioxide Anion Gap BUN Creatinine Est GFR (CKD-EPI)AfAm Est GFR (CKD-EPI)NonAf POC Glucometer 288 84 52 Random Glucose Calcium Magnesium Total Bilirubin AST ALT Alkaline Phosphatase Total Protein Albumin COVID-19 (ESPINOZA) 06/25/20 06/25/20 06/25/20 02:19 06:16 07:21 WBC 4.5 RBC 4.05 Hgb 12.8 Hct 39.4 MCV 97.1 H MCH 31.5 MCHC 32.5 RDW 12.1 Plt Count 200 MPV 9.1 Absolute Neuts (auto) 2.0 Neutrophils % 45.3 Lymphocytes % 48.1 H Monocytes % 3.1 L Eosinophils % 2.9 Basophils % 0.6 Sodium Potassium Chloride Carbon Dioxide Anion Gap BUN Creatinine Est GFR (CKD-EPI)AfAm Est GFR (CKD-EPI)NonAf POC Glucometer 157 221 Random Glucose Calcium Magnesium Total Bilirubin AST ALT Alkaline Phosphatase Total Protein Albumin COVID-19 (ESPINOZA) 06/25/20 06/25/20 06/25/20 07:21 08:40 11:41 WBC RBC Hgb Hct MCV MCH MCHC RDW Plt Count MPV Absolute Neuts (auto) Neutrophils % Lymphocytes % Monocytes % Eosinophils % Basophils % Sodium 137 Potassium 4.2 Chloride 107 Carbon Dioxide 24 Anion Gap 6 L BUN 4.0 L Creatinine 0.5 L Est GFR (CKD-EPI)AfAm 143.30 Est GFR (CKD-EPI)NonAf 123.64 POC Glucometer 363 278 Random Glucose 271 H Calcium 7.7 L Magnesium 1.8 Total Bilirubin 0.7 AST 25 ALT 27 Alkaline Phosphatase 108 Total Protein 5.0 L Albumin 2.7 L COVID-19 (ESPINOZA) Active Medications Generic Name Dose Route Start Last Admin Trade Name Freq PRN Reason Stop Dose Admin Calcium Carbonate 650 mg 06/24/20 11:00 06/25/20 10:03 Calcium Carbonate - PO 650 mg DAILY MAGY Administration Heparin Sodium (Porcine) 5,000 unit 06/24/20 10:00 06/25/20 10:02 Heparin - SQ 5,000 unit BID MAGY Administration Potassium Chloride/Sodium Chloride 20 meq in 1,000 mls @ 100 mls/hr 06/24/20 16:00 06/24/20 16:01 Ns+20 Meq Kcl - IV 100 mls/hr ASDIR MAGY Administration Insulin Aspart 1 vial 06/25/20 11:00 Novolog Vial Sliding Scale - SQ TIDAC MAGY Protocol Insulin Aspart 1 vial 06/25/20 22:00 Novolog Vial Sliding Scale - SQ HS MAGY Protocol Insulin Detemir 6 units 06/25/20 22:00 Levemir Vial SQ HS [facility] Multivit/Folic Acid/Iron 1 tab 06/24/20 10:00 06/25/20 10:03 Vitamins (Sjr) - PO 1 tab DAILY [facility] Administration ASSESSMENT/PLAN: 39-year-old female, 2 wks , admitted with DKA. -Had been treated for gestational DM during , but recently stopped insulin per grooving machine operator recs -AG closed -BG difficult to control here, has been 52-363 in past 24 hrs -Inpatient endocrine consult appreciated: recommend starting Levemir 6 units hs and continuing sliding scale -Call placed to outpatient grooving machine operator Dr. Zakia Madrid ([facility]) [phone] / [facility] [phone] - recommends basal insulin (switch to 24 hr e.g. Lantus on dc), pt can follow up in office on Thursday - DISPO: Possible dc tomorrow if tolerates insulin regimen. Problem List - Problems (1) DKA (diabetic ketoacidoses) Problems reviewed: Yes Code(s): E11.10 - TYPE 2 DIABETES MELLITUS WITH KETOACIDOSIS WITHOUT COMA Qualifiers: Diabetes mellitus type: other specified (including CARLOS EDUARDO) Diabetes mellitus complication detail: without coma Qualified Code(s): E13.10 - Other specified diabetes mellitus with ketoacidosis without coma Visit type - Emergency Visit Emergency Visit: Yes ED Registration Date: 06/23/20 Care time: The patient presented to the Emergency Department on the above date and was hospitalized for further evaluation of their emergent condition. - New Patient This patient is new to me today: Yes Date on this admission: 06/26/20 - Critical Care Critical Care patient: No - Discharge Referral Referred to [facility] Med P.C.: No
[2020-06-25] MEDS: SODIUM CHLORIDE 0.9%/KCL 20 MEQ/1,000 ML INFUS.BAG IV SCH (16:00)
[2020-06-25] MEDS ORDERED: INSULIN SLIDING SCALE (NOVOLOG) 1 VIAL SQ SCH (22:00)
[2020-06-25] MEDS ORDERED: INSULIN (LEVEMIR) 100 UNITS/ML UNITS SQ SCH (22:00)
[2020-06-26 06:46] VITALS: BP 109/59; PULSE 75; TEMP 97.3
[2020-06-26 08:04] LABS: BASO % 0.3 % (0-2.0); EOS % 2.7 % (0-4.5); HEMATOCRIT 38.6 % (32.4-45.2); HEMOGLOBIN 12.9 GM/dl (10.7-15.3); LYMPH % 28.4 % (8-40); MCH 32.1 pg (25.7-33.7); MCHC 33.4 g/dl (32.0-36.0); MEAN CELL VOLUME 96.2 fl (80-96); MEAN PLT VOLUME 9.1 fl (7.5-11.1); MONO % 4.7 % (3.8-10.2); NEUT % 63.9 % (42.8-82.8); PLATELET COUNT 181 K/MM3 (134-434); RBC 4.01 M/mm3 (3.60-5.2); RDW 12.1 % (11.6-15.6); WHITE BLOOD COUNT 5.8 K/mm3 (4.0-10.8)
[2020-06-26 08:07] LABS: CALCIUM 8.1 mg/dl (8.5-10); CREATININE 0.4 mg/dl (0.55-1.3); POTASSIUM 3.4 mmol/L (3.5-5.1)
[2020-06-26] MEDS ORDERED: POTASSIUM CHLORIDE TABS 20 MEQ TABLET.ER (FP) PO ONE (09:03)
[2020-06-26] MEDS ORDERED: INSULIN (LEVEMIR) 100 UNITS/ML UNITS SQ ONE (09:07)
--- NOTE | 2020-06-26 09:36 | DS ---
Physical Exam: SUBJECTIVE: Patient seen and examined. Feeling well, no complaints. Eager to go home. OBJECTIVE: K 3.4, repleted. Vital Signs Period Temp Pulse Resp BP Sys/Sarkar Pulse Ox Last 24 Hr 97.3 F-99.0 F 75-84 16-18 104-118/59-90 96-100 PHYSICAL EXAM GENERAL: The patient is awake, alert, and fully oriented, in no acute distress. HEAD: Normal with no signs of trauma. EYES: PERRL, extraocular movements intact, sclera anicteric, conjunctiva clear. ENT: Ears normal, nares patent, oropharynx clear without exudates, moist mucous membranes. NECK: Trachea midline, full range of motion, supple. LUNGS: Breath sounds equal, clear to auscultation bilaterally, no wheezes, no crackles, no accessory muscle use. HEART: Regular rate and rhythm, S1, S2 without murmur, rub or gallop. ABDOMEN: Soft, nontender, nondistended, normoactive bowel sounds, no guarding, no rebound, no hepatosplenomegaly, no masses. EXTREMITIES: 2+ pulses, warm, well-perfused, no edema. NEUROLOGICAL: Cranial nerves II through XII grossly intact. Normal speech, gait not observed. PSYCH: Normal mood, normal affect. SKIN: Warm, dry, normal turgor, no rashes or lesions noted. LABS Laboratory Results - last 24 hr 06/25/20 06/25/20 06/25/20 11:41 16:12 21:07 WBC RBC Hgb Hct MCV MCH MCHC RDW Plt Count MPV Absolute Neuts (auto) Neutrophils % Lymphocytes % Monocytes % Eosinophils % Basophils % Sodium Potassium Chloride Carbon Dioxide Anion Gap BUN Creatinine Est GFR (CKD-EPI)AfAm Est GFR (CKD-EPI)NonAf POC Glucometer 278 442 400 Random Glucose Calcium 06/25/20 06/26/20 06/26/20 23:22 05:25 06:55 WBC RBC Hgb Hct MCV MCH MCHC RDW Plt Count MPV Absolute Neuts (auto) Neutrophils % Lymphocytes % Monocytes % Eosinophils % Basophils % Sodium Potassium Chloride Carbon Dioxide Anion Gap BUN Creatinine Est GFR (CKD-EPI)AfAm Est GFR (CKD-EPI)NonAf POC Glucometer 303 55 190 Random Glucose Calcium 06/26/20 06/26/20 07:16 07:16 WBC 5.8 RBC 4.01 Hgb 12.9 Hct 38.6 MCV 96.2 H MCH 32.1 MCHC 33.4 RDW 12.1 Plt Count 181 MPV 9.1 Absolute Neuts (auto) 3.6 Neutrophils % 63.9 Lymphocytes % 28.4 Monocytes % 4.7 Eosinophils % 2.7 Basophils % 0.3 Sodium 138 Potassium 3.4 L Chloride 107 Carbon Dioxide 25 Anion Gap 6 L BUN 6.0 L Creatinine 0.4 L Est GFR (CKD-EPI)AfAm 154.22 Est GFR (CKD-EPI)NonAf 133.06 POC Glucometer Random Glucose 205 H Calcium 8.1 L HOSPITAL COURSE: This is a 39-year-old female with gestational DM on insulin, now 2 weeks , who presented to the ED on 06/23 with DKA (pH 7.1, glucose >400, AG 18, positive beta hydroxybutyrate). The patient did not require insulin gtt. She was admitted to med-surg and in consultation with endocrine, was treated with fluids, sliding scale regular insulin, and basal insulin. She will be discharged on Lantus and sliding scale Novolin. She is familiar with both insulin pen and glucometer use. Her outpatient splash line operator, Dr. Cisse, is aware of her admission and will follow up with the patient tomorrow to further refine her insulin regimen. Followup instructions and return precautions were reviewed with the patient and . Date of Admission:06/23/20 Date of Discharge: 06/26/20 Minutes to complete discharge: 45 Discharge Summary Problems reviewed: Yes Reason For Visit: BLOOD SUGAR ELEVATED Condition: Guarded - Instructions Diet, Activity, Other Instructions: -Start using 8 units of Lantus (24 hr insulin) at bedtime. This may need to be gradually increased by Dr. Cisse. -Check your blood sugar before meals and follow a sliding scale for regular insulin: 101-150: No insulin 151-200: Use 2 units 201-250: Use 4 units 251-300: Use 6 units 301-350: Use 8 units 351-400: Use 10 units >400: Use 10 units and call your doctor -Follow a diabetic (low carbohydrate diet) and exercise regularly -Please call Dr. Cisse's office today. Explain that you were hospitalized and need to be seen tomorrow (Thursday). -Return to the ER here for any new or concerning symptoms. Referrals: Zakia Madrid MD [Non Staff, Medical] - (Thursday - call office for appointment) FriendRohan [Primary Care Provider] - Disposition: HOME - Home Medications Comprehensive Discharge Medication List: Ambulatory Orders Fexofenadine HCl [Loraine Allergy] 60 mg PO DAILY 06/23/20 Pnv No.95/Ferrous Fum/Folic AC [ Caplet] 1 each PO DAILY 06/23/20 Alcohol Antiseptic Pads [Alcohol Prep Pad] 1 each TP PRN #1 box 06/26/20 Insulin Glargine,Hum.rec.anlog [Lantus Solostar PEN (NF)] 8 units SQ HS #1 box 06/26/20 Insulin Regular, Human [Novolin R Flexpen] 100 unit SQ ACHS #1 box 06/26/20 This patient is new to me today: No Emergency Visit: Yes ED Registration Date: 06/23/20 Care time: The patient presented to the Emergency Department on the above date and was hospitalized for further evaluation of their emergent condition. Critical Care patient: No - Discharge Referral Referred to [facility] Med P.C.: No
[2020-06-26] MEDS ORDERED: PT OWN MED DRAWER 7, Y5N ONE ×2 (09:41→10:07)
[2020-06-26] MEDS: HEPARIN NA (PORCINE) 5,000 UNITS/ML 1ML VIAL SQ SCH (09:52)
[2020-06-26] MEDS: CALCIUM CARBONATE 650 MG TABLET PO SCH (10:00)
[2020-06-26] MEDS: PRENATAL VITAMINS W/ FOLIC ACID TABLET (FP) PO SCH (10:00)
[2020-06-26] MEDS: INSULIN SLIDING SCALE (NOVOLOG) 1 VIAL SQ SCH (11:37)
== END 2020-06-26 12:45 | disposition home or self-care (01) | DRG 776 ==
LOC: FER 21:34 → FM/S 23:29 → UNDOADMIN 06-24 04:37
PROVIDERS: ADMIT Internal Medicine; ATTEND Registered Nurse Emergency
DX: O90.9 Complication of the puerperium, unspecified (principal); E11.10 Type 2 diabetes mellitus with ketoacidosis without coma; E83.51 Hypocalcemia
CPT/HCPCS: 36415; 80048; 80053; 81003; 81015; 82010; 82803; 82962; 83036; 83735; 84100; 85025; 86337; 86341; 87086; 93005; 99285-25; J0131; J1644; U0003